=== PATIENT | male | born 1990 | race African-American/Black ===

== ENCOUNTER 2018-06-30 11:56 | Emergency (ER) | payer OTHER ==
[2018-06-30] MEDS ORDERED: LIDOCAINE 1% INJ 10MG/ML (20 ML MDV) SQ ONE (13:14)
--- NOTE | 2018-06-30 13:55 | ED ---
General Adult HPI - General Chief complaint: Wound/Laceration Stated complaint: Finger laceration-[facility] Time Seen by Provider: 06/30/18 12:56 Source: patient, RN notes reviewed Mode of arrival: ambulatory Limitations: no limitations - History of Present Illness Initial comments: 28-year-old male presents to the emergency department for a chief complaint of laceration to the left second digit that occurred about one hour prior to arrival. Patient was at work in the kitchen when he cut his finger with a knife. Patient has full range of motion of the left second digit. Patient is up-to-date on immunizations including tetanus as of 1 year ago. No other injuries.Patient has no other complaints at this time including shortness of breath, chest pain, abdominal pain, nausea or vomiting, headache, or visual changes. - Related Data Home Medications Medication Instructions Recorded Confirmed No Known Home Medications 03/01/16 03/01/16 Allergies Allergy/AdvReac Type Severity Reaction Status Date / Time Penicillins Allergy Unknown Verified 06/30/18 12:14 Review of Systems ROS Statement: Those systems with pertinent positive or pertinent negative responses have been documented in the HPI. ROS Other: All systems not noted in ROS Statement are negative. Past Medical History Past Medical History: No Reported History History of Any Multi-Drug Resistant Organisms: None Reported Past Surgical History: Orthopedic Surgery Additional Past Surgical History / Comment(s): L leg, L hip Past Psychological History: No Psychological Hx Reported Smoking Status: Current every day smoker Past Alcohol Use History: None Reported Past Drug Use History: None Reported General Exam Limitations: no limitations General appearance: alert, in no apparent distress Head exam: Present: atraumatic, normocephalic, normal inspection Eye exam: Present: normal appearance, PERRL, EOMI. Absent: scleral icterus, conjunctival injection, periorbital swelling ENT exam: Present: normal exam, mucous membranes moist Neck exam: Present: normal inspection, full ROM. Absent: tenderness, meningismus, lymphadenopathy Respiratory exam: Present: normal lung sounds bilaterally. Absent: respiratory distress, wheezes, rales, rhonchi, stridor Cardiovascular Exam: Present: regular rate, normal rhythm, normal heart sounds. Absent: systolic murmur, diastolic murmur, rubs, gallop, clicks Extremities exam: Present: full ROM (Full range of motion of the left second finger), normal capillary refill (Capillary refill less than 2 seconds and radial pulse 2+ and left upper extremity), other (Patient has a 2 cm laceration on the radial aspect of the left second finger along the proximal phalanx. no injuries to deeper structures) Neurological exam: Present: alert, oriented X3, CN II-XII intact Psychiatric exam: Present: normal affect, normal mood Course Vital Signs 06/30/18 12:14 Temperature 98.7 F Pulse Rate 89 Respiratory 18 Rate Blood Pressure 136/97 O2 Sat by Pulse 97 Oximetry Procedures - Laceration Laceration #1 Indication: laceration Site: other (finger) Size (cm): 2 Description: linear, flap Depth: simple, single layer Anesthetic Used: lidocaine 1% Anesthesia Technique: local infiltration Amount (mls): 2 Pre-repair: wound explored, irrigated extensively, deep structures intact Type of Sutures: other (ethilon) Size of Sutures: 5-0 Number of Sutures: 4 Technique: simple, interrupted Patient Tolerated Procedure: well, no complications Medical Decision Making - Medical Decision Making 28-year-old male presents for laceration to the left second finger. Deep structures intact. No foreign bodies evident. Wound was cleaned with soap and water. It was then cleaned with pressure saline irrigation. Full range of motion of the left second digit including MCP, PIP, DIP joints. Wound was repaired using 4 simple interrupted sutures. Discussed following up with primary to have a wound recheck in one to 2 days. Discussed monitoring for signs of infection or worsening symptoms and returning if these occur. Otherwise he will return in 7-10 days to have sutures removed. Disposition Clinical Impression: Laceration Disposition: TRANSFER TO PSYCH HOSP/UNIT Condition: Good Instructions (If sedation given, give patient instructions): Laceration (ED), Care For Your Stitches (ED) Additional Instructions: Please keep the area clean. Please follow-up with primary care in 1-2 days for a wound recheck. Please return in 7-10 days to have sutures removed. Return earlier if you notice any signs of infection or worsening symptoms. Is patient prescribed a controlled substance at d/c from ED?: No Referrals: Jada Verde DO [Primary Care Provider] - 1-2 days Time of Disposition: 13:53
[2018-06-30 14:01] VITALS: BP 140/88; PULSE 83; RESP 16; TEMP 98.2
== END 2018-06-30 13:59 | disposition home or self-care (01) ==
LOC: EC 11:56
DX: S61.211A Laceration without foreign body of left index finger without damage to nail, initial encounter (principal); F17.200 Nicotine dependence, unspecified, uncomplicated; Z88.0 Allergy status to penicillin; W26.0XXA Contact with knife, initial encounter; Y93.89 Activity, other specified; Y92.69 Other specified industrial and construction area as the place of occurrence of the external cause; Y99.0 Civilian activity done for income or pay
CPT/HCPCS: 99282; 12001; J2001; 12002

== ENCOUNTER 2024-12-18 15:02 | Emergency (ER) | payer OTHER ==
--- NOTE | 2024-12-18 15:13 | ED ---
Recheck HPI <Kacy - Last Filed: 12/18/24 15:56> - General Source: patient Mode of arrival: ambulatory Limitations: no limitations <Ileana Benedict - Last Filed: 12/18/24 16:35> - General Chief Complaint: Recheck/Abnormal Lab/Rx Stated Complaint: [facility] - needle poke Time Seen by Provider: 12/18/24 15:06 - History of Present Illness Initial Comments: 34-year-old male with no known medical history and is a daily smoker here for needlestick injury. Patient reported that 2 hours ago at [place] he was stuck by a safety pin on his left third finger that was in a patient belongings bag. He informed RN there and he was advised to wash his hands and use alcohol swabs the affected area. Patient in [place] status for HIV and other STDs is unknown and he is homeless. Denied fever, chills, abdominal pain, changes to sensation of affected finger, previous bleeding, bruising, tremors, nausea, vomiting. Tetanus vaccination up-to-date per patient. (Ileana Benedict) - Related Data Home Medications Medication Instructions Recorded Confirmed No Known Home Medications 03/01/16 03/01/16 Allergies Allergy/AdvReac Type Severity Reaction Status Date / Time Penicillins Allergy Unknown Verified 12/18/24 15:10 Review of Systems ROS Other: All systems not noted in ROS Statement are negative. <EnglishKacy - Last Filed: 12/18/24 15:56> ROS Other: All systems not noted in ROS Statement are negative. <Ileana Benedict - Last Filed: 12/18/24 16:35> ROS Statement: Those systems with pertinent positive or pertinent negative responses have been documented in the HPI. Past Medical History Past Medical History: No Reported History History of Any Multi-Drug Resistant Organisms: None Reported Past Surgical History: Orthopedic Surgery Additional Past Surgical History / Comment(s): L leg, L hip Past Psychological History: No Psychological Hx Reported Smoking Status: Current every day smoker Past Alcohol Use History: None Reported Past Drug Use History: None Reported <Ileana Benedict - Last Filed: 12/18/24 16:35> General Exam Limitations: no limitations <Ileana Benedict - Last Filed: 12/18/24 16:35> - General Exam Comments Initial Comments: Physical examination: Vital signs reviewed General: non toxic, no distress, appears at stated age Head: atraumatic, normocephalic, symmetric Mouth: no lip lesion, mucus membranes moist Cardiovascular: S1S2 reg, no murmur Lungs: CTA bilateral, no rhonchi, no rales, no accessory muscle use Abdominal: soft, nondistended, nontender to palpation, no guarding Ext: muscle strength 5 out of 5 in all 4 extremities grossly, no gross muscle atrophy, no contractures, positive dorsalis pedis pulse bilateral, no edema Neuro: no gross focal neuro deficits Psych: Alert and oriented x3, appropriate affect and mood (Ileana Benedict) Course <Ileana Benedict - Last Filed: 12/18/24 16:35> Vital Signs 12/18/24 12/18/24 15:06 16:00 Temperature 98.0 F 99.0 F Pulse Rate 107 H 94 Respiratory 18 15 Rate Blood Pressure 152/79 125/90 O2 Sat by Pulse 97 99 Oximetry - Reevaluation(s) Reevaluation #1: 12/18/24 15:32 Patient reported no change in symptoms at this time. BP improving. (Ileana Benedict) Medical Decision Making <Kacy White - Last Filed: 12/18/24 15:56> <Ielana Benedict - Last Filed: 12/18/24 16:35> - Medical Decision Making I personally saw the patient and performed the critical portion of the service. I discussed the patient care with the resident physician. I directed management, care planning and final disposition of the patient. This includes, but not limited to, review of all lab work, radiological studies, EKG's, consultations, vital signs, and nursing notes. 34-year-old gentleman who works at [employer] is going through a residence backpack when he felt a stick from a CT needle. Unsure of inoculum on the needle. No bleeding afterwards. Superficial subcutaneous injury. Happened just prior to arrival. We discussed risks and benefits of postexposure prophylaxis. Patient ultimately declined postoperative bilateral. Discussed the importance of following up with received the health department regarding today's visit, monitoring closely for signs or symptoms of HIV such as fluid symptoms, chills, body aches or fever experiencing symptoms or any further concerns arise wellbeing is return to the ER immediate Critical care time of [0] minutes excluding separately billable procedures was spent in conjunction with critical care activities provided by the Resident and Attending simultaneously. I was present during [no procedures] for all critical portions of the procedure and as immediately available to furnish service during the entire procedure. (,Kacy) Was pt. sent in by a medical professional or institution (, [facility], [employer], urgent care, hospital, or [facility]...) When possible be specific @ -Patient Did you speak to anyone other than the patient for history (EMS, parent, family, police, friend...)? What history was obtained from this source @ -[No] Did you review nursing and triage notes (agree or disagree)? Why? @ -[I reviewed and agree with nursing and triage notes] Were old charts reviewed (outside hosp., previous admission, EMS record, old EKG, old radiological studies, urgent care reports/EKG's, [facility] records)? Report findings @ -[No old charts were reviewed] Differential Diagnosis? @ -[chest pain, altered mental status, abdominal pain women, abdominal pain men, vaginal bleeding, weakness, fever, dyspnea, syncope, headache, dizziness, GI bleed, back pain, seizure, CVA, palpatations, mental health, musculoskeletal] EKG interpreted by me (3pts min.). @ -[As above] X-rays interpreted by me (1pt min.). @ -[None done] CT interpreted by me (1pt min.). @ -[None done] U/S interpreted by me (1pt. min.). @ -[None done] What testing was considered but not performed or refused? (CT, X-rays, U/S, labs)? Why? @ -[None] What meds were considered but not given or refused? Why? @ -[None] Did you discuss the management of the patient with other professionals (professionals i.e. , [facility], [employer], lab, RT, psych nurse, psych social worker, supervisor feed house, teacher, helicopter officer, keycase assembler)? Give summary @ -[Mention supervising physician] Was smoking cessation discussed for >3mins.? @ -[No] Was critical care preformed (if so, how long)? @ -[No] Were there social determinants of health that impacted care today? How? (Homelessness, low income, unemployed, alcoholism, drug addiction, transportation, low edu. Level, literacy, decrease access to med. care, intermediate, rehab)? @ -[No] Was there de-escalation of care discussed even if they declined (Discuss DNR or withdrawal of care, Hospice)? DNR status @ -[No] What co-morbidities impacted this encounter? (DM, HTN, Smoking, COPD, CAD, Cancer, CVA, ARF, Chemo, Hep., AIDS, mental health diagnosis, sleep apnea, morbid obesity)? @ -[None] Was patient admitted / discharged? Hospital course, mention meds given and route, prescriptions, significant lab abnormalities, going to OR and other pertinent info. @ -Discharge. Discussed with patient that since all her [place] status was unknown for HIV, best recommendation could provide is HIV postexposure prophylaxis. Discussed risk and benefits of undergoing postexposure prophylaxis and based on RASP score patient is low risk and is not likely to contract HIV. He is cleared for discharge and is advised to follow-up with health department for HIV testing should mother democrat status be known. Also advised to return if symptoms of fatigue, sweats, nausea, fatigue abdominal distention and jaundice occur concerning for hepatitis. Undiagnosed new problem with uncertain prognosis? @ -[No] Drug Therapy requiring intensive monitoring for toxicity (Heparin, Nitro, Insuli n, Cardizem)? @ -[No] Were any procedures done? @ -[No] Diagnosis/symptom? @ -[default] Acute, or Chronic, or Acute on Chronic? @ -[default] Uncomplicated (without systemic symptoms) or Complicated (systemic symptoms)? @ -[default] Side effects of treatment? @ -[No] Exacerbation, Progression, or Severe Exacerbation? @ -[No] Poses a threat to life or bodily function? How? (Chest pain, [place], [place], pneumonia, PE, COPD, DKA, ARF, appy, cholecystitis, CVA, Diverticulitis, Homicidal, Suicidal, threat to staff... and all critical care pts) @ -[No] (Ileana Benedict) Disposition Is patient prescribed a controlled substance at d/c from ED?: No <Kacy White - Last Filed: 12/18/24 15:56> Time of Disposition: 16:09 <Ileana Benedict - Last Filed: 12/18/24 16:35> Clinical Impression: Needlestick injury accident Disposition: HOME SELF-CARE Condition: Good Instructions (If sedation given, give patient instructions): HIV Transmission (ED), Postexposure Prophylaxis (ED) Additional Instructions: Every disease is a spectrum and a small chance still exists that a serious condition could develop, for this reason, please monitor yourself closely for new symptoms, signs of infection redness, swelling or discharge from the needlestick site, flulike symptoms such as nausea, vomiting, chills, body aches, [fever], should you change your minder regarding post exposure prophylaxis, inability to tolerate/keep down fluids or your medications, inability to follow up with outpatient providers as instructed and should you experience these symptoms or should you have any further concerns for your wellbeing please return to the ED or call 911 immediately. Please follow-up with the health department within the next 2 weeks if you wish to undergo further HIV/hepatitis testing or should you like to start postexposure prophylaxis and do not want to come to the emergency department. PLEASE call your primary care physician as soon as possible to arrange / discuss plan for followup appointment. Appointment in the next 1-3 days is strongly encouraged if possible. PLEASE let us know here before you leave if there is anything further we can do to be of any assistance. Take care and feel Better! Referrals: None,Stated [Primary Care Provider] - 1-2 days
[2024-12-18 16:27] VITALS: BP 125/90; PULSE 94; RESP 15; TEMP 99
== END 2024-12-18 16:00 | disposition home or self-care (01) ==
LOC: EC 15:02
DX: Z77.21 Contact with and (suspected) exposure to potentially hazardous body fluids (principal); F17.200 Nicotine dependence, unspecified, uncomplicated; Z59.00 Homelessness unspecified; Z88.0 Allergy status to penicillin; W46.0XXA Contact with hypodermic needle, initial encounter; Y99.0 Civilian activity done for income or pay
CPT/HCPCS: 99282